=== PATIENT | female | born 2000 | race Caucasian/White ===

== ENCOUNTER 2020-08-17 12:06 | Outpatient (CLI) | payer OTHER | END 2020-08-17 12:07 | disposition home or self-care (01) | LOC: DTY/OP 12:06 | PROVIDERS: ATTEND Physician Assistant | DX: E66.01 Morbid (severe) obesity due to excess calories (principal) | CPT/HCPCS: 97802 ==

== ENCOUNTER 2021-12-07 18:00 | Outpatient (CLI) | payer BC | END 2021-12-07 18:01 | disposition home or self-care (01) | LOC: SLEEPLAB 18:00 | PROVIDERS: ATTEND Family Medicine | DX: G47.33 Obstructive sleep apnea (adult) (pediatric) (principal); R53.83 Other fatigue; F41.8 Other specified anxiety disorders; E66.9 Obesity, unspecified; R06.83 Snoring | CPT/HCPCS: 95800 ==